=== PATIENT | male | born 2000 ===

== ENCOUNTER 2022-08-09 12:40 | Emergency (ER) | payer SELFPAY ==
[2022-08-09] MEDS ORDERED: SODIUM CHLORIDE 0.9% 1000 ML 1,000 ML ONE (12:48)
[2022-08-09] MEDS ORDERED: MORPHINE 4 MG/1 ML INJ ONE (12:48)
[2022-08-09] MEDS ORDERED: SODIUM CHLORIDE 0.9% 1000 ML 1,000 ML IV ONE (12:49)
[2022-08-09] MEDS ORDERED: MORPHINE 4 MG/1 ML INJ IV ONE (12:49)
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
[2022-08-09] MEDS ORDERED: HYDROmorphone 1 MG/1 ML INJ IV ONE (13:05)
[2022-08-09] MEDS ORDERED: BACITRACIN/POLYMYXIN B OINT 28.35 GM TP NR (13:30)
[2022-08-09] MEDS ORDERED: SODIUM CHLORIDE IRRI 500 ML 500 ML IR ONE (13:54)
[2022-08-09] MEDS ORDERED: MORPHINE 4 MG/1 ML INJ IV NR (14:00)
[2022-08-09] MEDS ORDERED: BACITRACIN ZINC OINT 28.4 GM TP ONE (14:00)
[2022-08-09 14:43] VITALS: BP 131/74
== END 2022-08-09 14:43 | disposition home or self-care (01) ==
LOC: ED 12:40
DX: T20.00XA Burn of unspecified degree of head, face, and neck, unspecified site, initial encounter (principal); X08.8XXA Exposure to other specified smoke, fire and flames, initial encounter; Y93.89 Activity, other specified; Y92.89 Other specified places as the place of occurrence of the external cause; Y99.8 Other external cause status
CPT/HCPCS: 16020; 96361; 96374; 96375; 99282; J1170; J2270; J7030